=== PATIENT | male | born 1965 | race African-American/Black ===

== ENCOUNTER 2019-08-03 19:06 | Inpatient (IN) | payer OTHER ==
[~2019-08-03] VITALS: Ht 180.3 cm; Wt 89.5 kg
[2019-08-03 19:10] VITALS: BP 106/68
[2019-08-03 19:26] LABS: ABSOLUTE NEUTROPHILS 5.4 thou/uL (1.4-8.2); BASOPHILS 0.7 % (0.0-2.0); EOSINOPHILS 1.4 % (0.0-3.0); HEMATOCRIT 42.2 % (42.0-52.0); HEMOGLOBIN 14.1 gm/dL (14.0-18.0); LYMPHOCYTES 19.6 % (24.0-44.0); MCH 26.1 pg (26.0-34.0); MCHC 33.5 g/dL (28.0-37.0); MONOCYTES 10.9 % (1.0-8.0); PLATELET COUNT 182 thou/uL (150-400); POLYS 67.4 % (36.0-66.0); RBC 5.41 mil/uL (4.50-6.00); RDW 15.5 % (10.5-14.5); WBC 8.1 thou/uL (4.0-11.0)
[2019-08-03 20:03] LABS: ALBUMIN 3.6 g/dL (3.4-5.0); ANION GAP 13 mmol/L (7-16); BUN 10 mg/dL (7-18); CALCIUM 8.8 mg/dL (8.5-10.1); CHLORIDE 104 mmol/L (98-107); CO2 24 mmol/L (21-32); CREATININE 1.1 mg/dL (0.7-1.3); GLUCOSE 105 mg/dL (74-106); SGOT 18 U/L (15-37); SGPT 24 U/L (30-65); SODIUM 141 mmol/L (136-145); TOTAL BILIRUBIN 0.5 mg/dL (0.2-1.0); TROPONIN-I <0.06 ng/mL (<0.06)
[2019-08-03 20:07] LABS: POTASSIUM 2.3 mmol/L (3.5-5.1)
[2019-08-03 20:25] LABS: URINE BILIRUBIN NEGATIVE (Negative); URINE BLOOD 1+ (Negative); URINE CLARITY CLEAR; URINE COLOR YELLOW; URINE GLUCOSE-RANDOM* NEGATIVE (Negative); URINE KETONES NEGATIVE (Negative); URINE LEUKOCYTES-REFLEX NEGATIVE (Negative); URINE NITRITE-REFLEX NEGATIVE (Negative); URINE PROTEIN (DIPSTICK) NEGATIVE (Negative); URINE SPECIFIC GRAVITY <= 1.005 (1.005-1.035); URINE UROBILINOGEN 0.2 E.U./dl (0.2-1.0)
[2019-08-03 20:31] LABS: AMP/METHAMP Negative (Negative); BARBITURATES Negative (Negative); BENZODIAZEPINES Negative (Negative); COCAINE Negative (Negative); METHADONE Negative (Negative); OPIATES Negative (Negative); PCP POSITIVE (Negative)
[2019-08-03 20:43] LABS: BACTERIA-REFLEX None Seen /HPF (None Seen); CASTS None Seen /LPF (None Seen); CRYSTALS None Seen /LPF (None Seen); MUCUS None Seen strn/LPF (None Seen); SQUAMOUS None Seen /LPF (0-3); URINE RBC 0-2 Rare /HPF (0-2); URINE WBC-REFLEX None Seen /HPF (0-5)
[2019-08-03 21:20] VITALS: BP 122/77
[2019-08-03 21:28] VITALS: BP 109/70
[2019-08-03 21:50] VITALS: BP 115/78
[2019-08-03 23:12] VITALS: BP 120/84
[2019-08-04] VITALS (9 sets, daily range): BP systolic 91–123; BP diastolic 67–80
--- NOTE | 2019-08-04 01:38 | NUR ---
ADMITTED FROM ER UNDER 'S CARE. PT SEEN BY DACIA GILMORE NIGHT SHIFT FOR . SLEEPING, BUT AROUSABLE FOR SOME QUESTIONS. AFTER PATTERN MARKER'S EVALUATION, PT WAS TRANSFEERED TO ICU 238 FOR COVID19 RO. ALL THE BELONGINGS WERE TAKEN WITH PT TO ROOM 238. REPORT GIVEN TO JOSHUA LANG. ATTEMPTED TO CALL THE AND MOTHER ON CHART. BOTH COME OUT WRONG NUMBER. VSS. NO S/S ACUTE DISTRESS NOTED OR REPORTED UPON DEPARTURE FROM THE UNIT. CARE TRANSFERRED TO JOSHUA LANG AT THIS TIME.
--- NOTE | 2019-08-04 04:32 | NUR ---
ASSUMED CARE AT 0130, ASSESSMENT COMPLETED. PT INITIALLY NONVERBAL, BUT DID SQUEEZE HAND ON COMMAND; PUPILS SLUGGISH. PT LATER WOKE UP ENOUGH TO SAY HE WAS IN THE HOSPITAL, THOUGHT IT WAS RESEARCH, AND ALSO KNEW THE DATE; STATED HE ONLY TAKES MEDS FOR HTN, AND WHEN ASKED IF HE USED [facility]LL[facility] DRUGS, HIS SPEECH WAS TOO GARBLED TO UNDERSTAND. HAS BEEN SR, SATTING HIGH 90'S ON RA, SOFT BP, AFEBRILE. SECOND BAG OF POTASSIUM FINISHED ABOUT 0200. IV FLUIDS INFUSING. PER REPORT, HE WAS INCONT AT TRANSFER TO ICU, PLACED EXTERNAL CATHETER FOR SKIN PROTECTION. COVID SWAB SENT TO LAB AT 0415. SCD'S IN PLACE, UTILIZED PILLOWS TO OFFLOAD HEELS AND TURN PT. NO OTHER CONCERNS, WILL CONTINUE TO MONITOR.
--- NOTE | 2019-08-04 07:28 | EKG ---
[facility] [place] [address] ELECTROCARDIOGRAM REPORT Name: SONYA HADDAD Room #: 238-P ADM IN M.R.#: [id number] Admission: 08/03/19 Attend Phys: Alfredo Dash MD Discharge: Date of : 61 Report #: [id number] THIS REPORT FOR: cc: FAM - Family physician unknown FAM - Family physician unknown Samson Albert MD [facility] ~ THIS REPORT FOR: //name// [facility] ED Test Date: 2019-08-03 Test Time: 19:12:32 Pat Name: SONYA HADDAD Department: Room: [facility] Gender: M Weeder: : 1965 Requested By: Priti Aguiar Order Number: [id number] MD: Samson Albert Measurements Intervals Gatzke Rate: 125 P: 11 NC: 147 QRS: 13 QRSD: 75 T: 185 QT: 318 QTc: 459 Interpretive Statements Sinus tachycardia Nonspecific repol abnormality, diffuse leads No previous ECG available for comparison Electronically Signed On 08-04-2019 7:27:44 CDT by Samson Albert [email or web address] <ELECTRONICALLY SIGNED> By: Samson Albert MD, [facility] 08/04/19726 11 11 Samson Albert MD, [facility] /EPI
[2019-08-04 09:00] LABS: CALCIUM 8.6 mg/dL (8.5-10.1)
[2019-08-04 09:02] LABS: POTASSIUM 2.7 mmol/L (3.5-5.1)
--- NOTE | 2019-08-04 14:12 | NUR ---
chart review. consult for drug abuse. cm unable to visit with pt rt still jatinder out of it and resting with eyes closed. cm tried calling numbers on face sheet- non working numbers. noted in er note that daughter called ems. have no contacted number for pt daughter. will cont following as needed for dc needs.
--- NOTE | 2019-08-04 16:11 | NUR ---
AT 1110, COVID TEST NEGATIVE. DR. MENDEZ NOTIFIED. LAINEY WOODALL, INFECTION CONTROL NOTIFIED WHEN SHE ROUNDED AND SHE DEFERRED INFECTION CONTROL DECISION MAKING TO DR. PRECIADO. DR. PRECIADO PRESENT AT 1445. ENHANCED PRECAUTIONS REMOVED, NO ISOLATION. WINSTON LEWIS, CANE LOADER NOTIFIED AT 1611. CONSULT PLACED FOR DR. LANGE, REQUESTED BY DR. MENDEZ, WHEN PT REMOVED FROM ISOLATION. PT ALERT, CALM, NO DISTRESS, USING HIS CELL PHONE.
[2019-08-04 16:57] LABS: POTASSIUM 3.5 mmol/L (3.5-5.1)
--- NOTE | 2019-08-04 19:20 | NUR ---
addendum: iv access field stick remains in place related to limited iv access/no veins.
--- NOTE | 2019-08-04 19:20 | NUR ---
report to prudencio Rodney. pt transferring to Rm #[id number] CC-TELE status per wheelchair with his cell phone and personal belonging. pt asked for his glasses this afternoon, eye glasses not present when looked through his belongings.
--- NOTE | 2019-08-04 19:34 | NUR ---
AWAITING AVAILABLE WHEELCHAIR FOR TRANSFER TO [facility].
--- NOTE | 2019-08-04 22:00 | NUR ---
2019 - PT ARRIVED TO THE UNIT VIA WHEEL CHAIR. PT WAS AOX3, UNABLE TO ANSWER THE SITUATION. PT HAD A FLAT AFFECT AND SWEATING PREFUSELY PER TRANSPORTER. PT ALSO APPEARED TO HAVE LIGHT SENSITIVITY. CIWA WAS PERFORMED AND PT SCORED 8 AT THIS TIME. INTERVENTION HAS BEEN ADDED AND LORAZEPAM PO WAS ADMINISTERED. PT IS CURRENTLY IN A LOW STIMULUS ENVIRONMENT, ROOM IS DARK AND COOL. NO SPECIFIC CONCERNS AT THIS TIME. 2202 - PT WAS SLEEPING AND JUST WOKE UP, YELLING HEY SEVERAL TIMES, PT IS WANTING TO SPEAK WITH HIS BUT UNABLE TO DUE TO PHONE BATTERY DYING. WILL ASSIST PATIENT WITH PHONE ISSUES AND HELP ALLEVIATE STRESS FACTORS. WILL ADMINISTER MEDICATION NECESSARY
[2019-08-05 05:34] VITALS: BP 110/60
[2019-08-05 05:50] LABS: CALCIUM 8.4 mg/dL (8.5-10.1); CREATININE 0.8 mg/dL (0.7-1.3); MAGNESIUM 1.9 mg/dL (1.8-2.4); POTASSIUM 3.1 mmol/L (3.5-5.1)
[2019-08-05 07:30] VITALS: BP 128/83
[2019-08-05 12:30] VITALS: BP 128/86
[2019-08-05 16:00] VITALS: BP 127/80
--- NOTE | 2019-08-05 16:03 | NUR ---
SW reviewed chart and spoke with nursing and attending physician. Pt was transferred to from ICU. SW attempted to reach pt via phone in hospital room. No answer or line was busy. Psych consult is pending. Therapy has been ordered to work with pt to assist with recommendation for discharge needs. SW asked pt's nurse to ask pt for any contact info for family/friends, who can be contacted to assist with obtaining info and assisting with discharge planning. DIANA is following to assist as needed with discharge planning.
[2019-08-05 19:08] VITALS: BP 129/76
--- NOTE | 2019-08-05 19:12 | NUR ---
PT IS A&OX3, PT CAN FOLLOW ALL COMMANDS, PT'S VS ARE STABLE, PT HAS PO KCL REPLACEMENT FOR K+3.1, PT 'S ANXIETY CAN CONTROL BY MEDICATION, PT STRATS DRINKING AND EATING MEALS.PT DENIES PAIN AND SOB BY THIS TIME.
--- NOTE | 2019-08-05 20:25 | NUR ---
UPON ASSESSMENT PATIENT WAS WET AND HAD TAKEN OUT THE EXTERNAL POLANCO BY SELF. BED LINENS WERE CHANGED, ROOM WAS CLEANED UP, AND NEW EXTERNAL POLANCO WAS PLACED BY RN. PATIENT HAD OUTSIDE FOOD FROM [employer] [facility], NOT MUCH WAS EATEN AND WAS SPILLED ON THE DESK, THAT WAS CLEANED UP AND PUT ASIDE CAREFULLY AND PT WAS NOTIFIED OF ITS LOCATION ALONG WITH THE OTHER FOOD. READING GLASSES WERE BROUGHT UP FOR THIS PATIENT, IT WAS CLEANED BY RN AND PLACED ON THE PATIENT WELL. PATIENT HAD ASKED FOR SEROQUEL TONIGHT SO RN WILL PROVIDE IF IT IS SAFE FOR THE PATIENT. PT HAS BEEN AGITATED, ORDERING STAFF NUMEROUS TIMES IN THE HOUR TO COME IN AND GETTING UPSET WHEN IT'S NOT DONE INSTANTLY. ATIVAN WAS GIVEN FOR ANXIETY/AGITATION. PT REQUESTED WARM BLANKET. WILL BE PROVIDED. ASSESSMENTS ARE SAME YESTERDAY. NO CHANGES. VS ARE STABLE AT THIS TIME. WILL PROMOTE SLEEP/REST/COMFORT THIS EVENING.
[2019-08-06 04:59] VITALS: BP 108/68
[2019-08-06 05:46] LABS: BASOPHILS 0.9 % (0.0-2.0); EOSINOPHILS 4.5 % (0.0-3.0); HEMATOCRIT 40.1 % (42.0-52.0); HEMOGLOBIN 12.9 gm/dL (14.0-18.0); LYMPHOCYTES 28.5 % (24.0-44.0); MCH 25.4 pg (26.0-34.0); MCHC 32.1 g/dL (28.0-37.0); MCV 79.3 fL (80.0-100.0); MONOCYTES 8.6 % (1.0-8.0); PLATELET COUNT 179 thou/uL (150-400); POLYS 57.5 % (36.0-66.0); RBC 5.06 mil/uL (4.50-6.00); RDW 16.6 % (10.5-14.5); WBC 6.9 thou/uL (4.0-11.0)
[2019-08-06 06:04] LABS: CALCIUM 8.4 mg/dL (8.5-10.1); CREATININE 0.8 mg/dL (0.7-1.3); POTASSIUM 3.5 mmol/L (3.5-5.1)
[2019-08-06 08:18] VITALS: BP 120/76
--- NOTE | 2019-08-06 12:03 | NUR ---
DIANA reviewed chart and spoke with nursing and attending physician. DIANA left voice message for pt's father, Canelo ([phone]) to discuss pt's prior level of functioning and social support at time of discharge. Therapy is working with pt. DIANA contacted [facility] to see if they would consider pt for inpt acute rehab. Consult ordered. Referral has been made to [facility], as pt does not have health insurance. DIANA is following to assist as needed with discharge planning.
[2019-08-06 16:00] VITALS: BP 134/85
--- NOTE | 2019-08-06 17:33 | NUR ---
PATIENT SEEN BY DR. CALLAWAY THIS DATE FOR REHAB CONSULT. PATIENT TO CONTINUE THERAPIES DURING ACUTE HOSPITAL STAY AND WILL LIKELY BE AT A FUNCTIONAL LEVEL THAT WILL ALLOW PATIENT TO DISCHARGE TO HOME WITH FAMILY. E LEARNING COORDINATOR INFORMED. THANK YOU FOR THIS REFERRAL.
--- NOTE | 2019-08-07 02:39 | NUR ---
PT REQUESTED THAT WE RETURN IN 10 MIN FOR VITAL AND ASSESSMENT. WENT TO COMPLETE ANOTHER ASSESSMENT, PT WAS NOT IN ROOM. LOOKED OVER 3RD FLOOR, NOTIFIED SECURITY AND HOUSE SUP THAT PT HAD POSSIBLY ELOPED. ROOM WAS A MESS, IV WAS REMOVED BY PT AND LEFT SITTING ON SHELF. SECURITY CALLED AND SAID PT LEFT THROUGH ER ENTRANCE NOTED BY VIDEO. NOTIFIED PORK CUTLET MAKER. CALLED PT FATHER AND LEFT MESSAGE AND GAVE DETAILS.
--- NOTE | 2019-08-15 11:38 | HC ---
[facility] [place] [address] CONSULTATION Name: SONYA HADDAD Room #: 361-P [facility] IN ..#: [id number] Admission: 08/03/19 Attend Phys: Alfredo Dash MD Discharge: 08/06/19 Date of : 61 Report #: [id number] THIS REPORT FOR: cc: [facility] - Family physician unknown FAM - Family physician unknown Rashaun Llanos MD ~ CC: [facility] unknown Alfredo Dash DATE OF SERVICE: 08/06/2019 HISTORY OF PRESENT ILLNESS: The patient is a 53-year-old -[place] male with history of bipolar disorder, substance abuse history, admitted with acute mental status changes. He was noted to be smoking PCP daily, daily ETOH intake with wine cooler usage, and pipe tobacco cigar. His potassium is 2.3. He was diagnosed with encephalopathy multifactorial, thought secondary to substance abuse and electrolyte abnormalities. He also was noted to have Staph haemolyticus bacteremia. He was given IV fluids. Potassium was supplemented, parenteral IV antibiotics. He is doing better as far as his overall cognition from admission. He is now being seen in rehabilitation medicine consultation. PAST MEDICAL HISTORY: Includes hypertension, bipolar disorder. HABITS: Pipe smoker and usage of PCP as noted above as well as daily wine cooler. MEDICATIONS: Please see the full medication listing. ALLERGIES: No known drug allergies. SOCIAL HISTORY: Lives in a house with mother and brother, 2 steps in, 12 inside. Do not utilize gait aids. Notes that both mother and brother are present. Apparently both are retired. REVIEW OF SYSTEMS: Did not offer any current complaints of chest pain, shortness of breath or abdominal discomfort. PHYSICAL EXAMINATION: GENERAL: A 53-year-old -[place] male in no obvious distress. VITAL SIGNS: Last recorded temperature 36.6, pulse 84, respirations 18, blood pressure 120/76. NEUROLOGIC: He is alert, rather flat affect, but pleasant, follows basic commands without difficulty. Facies appeared symmetric. Dentition is poor. There is some delayed processing. EXTREMITIES: Functional range of motion of both upper extremities. Strength is grade 4-/5. DTRs are trace to 1. Lower extremities functional range of motion, [facility] [address] [place] [address] CONSULTATION Name: SONYA HADDAD Room #: 361-P [facility] IN .R.#: [id number] Admission: 08/03/19 Attend Phys: Alfredo Dash MD Discharge: 08/06/19 Date of : 61 Report #: [id number] strength is grade 4-/5. Yesterday therapy got him up and he was min assist sit to stand. Gait was 60 feet min assist without an assistive device. He does have moderate cognitive deficits. He has some safety issues with OT. He has contact guard assist with standing. ASSESSMENT: A 53-year-old -[place] male with the following problem list: 1. Multifactorial encephalopathy. 2. Electrolyte abnormalities. 3. Substance abuse. 4. Staph haemolyticus bacteremia. 5. Phencyclidine intoxication. 6. Critical hypokalemia. 7. Chronic alcohol abuse. 8. Bipolar disorder. 9. Hypertension. PLAN: He was ambulating up to 60 feet yesterday, min assist. He has contact guard for standing and OT. He does have some safety issues, which would appear to be premorbid. I would like to see how he does in physical therapy today. Appears to be approaching closer to his premorbid status and with mother and brother at home, would anticipate he may likely be able to return directly back to the home setting over the next couple of days as he further medically stabilizes. We will continue to follow, but would continue with case management, trying to work on contacting family members regarding support post-discharge and will continue to have the therapist work with him here on acute care in the meantime. Thank you for asking us to assist in this patient's care. We will continue to follow along with you. <ELECTRONICALLY SIGNED> By: Rashaun Llanos MD 08/15/19 1138 [id number] Rashaun Llanos MD /nt
== END 2019-08-06 20:00 | disposition left against medical advice (07) | DRG 93 ==
LOC: ER 19:06 → 4W 20:26 → EROBS 20:26 → 3W 20:26 → ICU 21:29 → 4W 21:48 → ICU 08-04 01:31 → 3W 08-04 20:18
PROVIDERS: Internal Medicine; Nurse Practitioner Family; Physician Assistant; ADMIT Hospitalist; ATTEND Hospitalist
DX: G92 Toxic encephalopathy (principal); F31.9 Bipolar disorder, unspecified; E87.6 Hypokalemia; F16.10 Hallucinogen abuse, uncomplicated; I10 Essential (primary) hypertension; B95.7 Other staphylococcus as the cause of diseases classified elsewhere; T40.995A Adverse effect of other psychodysleptics [hallucinogens], initial encounter; F39 Unspecified mood [affective] disorder; Z20.828 Contact with and (suspected) exposure to other viral communicable diseases; F10.10 Alcohol abuse, uncomplicated; F17.210 Nicotine dependence, cigarettes, uncomplicated; Z71.6 Tobacco abuse counseling; Y92.89 Other specified places as the place of occurrence of the external cause; Z79.899 Other long term (current) drug therapy; Z53.29 Procedure and treatment not carried out because of patient's decision for other reasons
CPT/HCPCS: 10045; 10879